=== PATIENT | female | born 1970 | race Caucasian/White ===

== ENCOUNTER 2018-11-11 08:36 | Day surgery (SDC) | payer BC ==
[2018-11-11] MEDS ORDERED: LIDOCAINE 1% INJ-PF (10 MG/ML) 30 ML SDV ONE (09:01)
[2018-11-11 09:29] LABS: INTERNATIONAL RATION (INR) 0.95; PROTHROMBIN TIME 13.1 SEC (11.4-15.4)
[2018-11-11 09:30] LABS: PARTIAL THROMBOPLASTIN TIME 33.3 SEC (23.5-35.8)
[2018-11-11 12:43] VITALS: BP 120/70
--- NOTE | 2018-11-11 13:11 | RADIOLOGY REPORT (SQ) ---
EXAM DESCRIPTION: MYELOGRAM CERVICAL; CT CERVICAL SPINE WITH COMPLETED DATE/TIME: 11/11/2018 10:44 am; 11/11/2018 10:46 am REASON FOR STUDY: RADICULOPATHY CERVICAL REGION M54.12 RADICULOPATHY, CERVICAL REGION COMPARISON: Cervical spine plain films 09/10/2018, 11/11/2017 MRI cervical spine 02/17/2015 FLUORO TIME: 1 minutes 1 second 12 digital fluoroscopic Images saved to PACS. TECHNIQUE: Myelography was discussed with the patient, and she agreed to the procedure. Under fluoroscopic localization, the left paracentral L3-4 level was localized. Skin marked. Timeout performed. After sterile skin prep and 3.5 mL of 1% local lidocaine for skin and deep tissue anesthesia, a 10 cm 22 gauge spinal needle was used to access the lumbar subarachnoid space via right paracentral approa ch at the left paracentral L3-4 level. Prompt return of clear cerebrospinal fluid. At this point, 8mL ofOmnipaque 300contrast was injected into the thecal sac without complication. Needle withdrawn, Ban d-Aid applied. Fluoroscopic digital images of the patient were obtained in the prone oblique orientations. Prone cr oss-table lateral cervical spine plain film was also obtained. After performing cervical myelogram, axial images were acquired through the cervical spine without in travenous contrast. Images reviewed with lung, soft tissue and bone windows. Reconstructed coronal and sagittal MPR images reviewed. Images stored on PACS. All CT scanners at this facility use dose modulation, iterative reconstruction, and/or weight based d osing when appropriate to reduce radiation dose to as low as reasonably achievable (ALARA). [facility]: Dose Right [facility]: CareDose [facility]: Dose Right [facility]: Teradose 4D [facility]: [employer] RADIATION DOSE: CT Rad equipment meets quality standard of care and radiation dose reduction techniq ues were employed. CTDIvol: 17.7 mGy. DLP: 418 mGy-cm. mGy. LIMITATIONS: There is some streak artifact from metallic disc spacers at the C4-5, C5-6, C6-7, and C 7-T1 levels. FINDINGS: Fluoroscopic images demonstrate symmetric cervical nerve root sleeve filling. No central or foraminal stenosis. ALIGNMENT: Anatomic. MINERALIZATION: Normal. VERTEBRAL BODIES: No fractures or dislocation. DISCS: C1-C2: No significant spinal stenosis or exit foraminal stenosis. C2-C3: No significant spinal stenosis or exit foraminal stenosis. C3-C4: No significant spinal stenosis or exit foraminal stenosis. C4-C5: No significant spinal stenosis or exit foraminal stenosis. Post fusion with an anterior fixat ion plate and metallic disc spacer. C5-C6: No significant spinal stenosis or exit foraminal stenosis. Post fusion with a metallic disc s pacer. C6-C7: No significant spinal stenosis or exit foraminal stenosis. Post fusion with a metallic disc s pacer C7-T1: No significant spinal stenosis or exit foraminal stenosis. Post fusion with an anterior fixat ion plate and metallic disc spacer. FACETS, LATERAL MASSES, POSTERIOR ELEMENTS: No fractures. No dislocation. No acute findings. VISUALIZED RIBS: No fractures. LUNG APICES AND SOFT TISSUES: No significant or acute findings. OTHER: No other significant finding. IMPRESSION: No significant central or foraminal encroachment. COMMENT: Patient medication list reviewed: Yes- Quality ID# [id number]:Eligible professional attests to doc umenting in the medical record they obtained, updated, or reviewed the patient's current medications. TECHNICAL DOCUMENTATION: JOB ID: [id number] Quality ID 145: Final reports for procedures using fluoroscopy that document radiation exposure zenia erlinda, or exposure time and number of fluorographic images (if radiation exposure indices are not avail able) Quality ID # [id number]: Final reports with documentation of one or more dose reduction techniques (e.g., Au tomated exposure control, adjustment of the mA and/or kV according to patient size, use of iterative reconstruction technique) 2010 [employer]- All Rights Reserved Reading location - IP/workstation name: [email or web address]
== END 2018-11-11 12:40 | disposition home or self-care (01) ==
LOC: RAD 08:36
PROVIDERS: ATTEND Specialist
DX: M54.12 Radiculopathy, cervical region (principal); I10 Essential (primary) hypertension; F17.210 Nicotine dependence, cigarettes, uncomplicated
CPT/HCPCS: 36415; 85610; 85730; 72240; 72126; J3490